=== PATIENT | female | born 2000 | race African-American/Black ===

== ENCOUNTER 2025-02-28 23:37 | Emergency (ER) | payer OTHER ==
[~2025-02-28] VITALS: Ht 170.2 cm; Wt 54.5 kg
[2025-03-01 00:10] VITALS: BP 101/72; PULSE 82; RESP 18; TEMP 97.3; O2SAT 98
[2025-03-01] MEDS: ACETAMINOPHEN 500 MG TABLET PO ONE (02:18)
[2025-03-01] MEDS: IBUPROFEN 400 MG TABLET PO ONE (02:18)
== END 2025-03-01 02:26 | disposition left against medical advice (07) ==
LOC: EMS 03-01 00:03
DX: S83.91XA Sprain of unspecified site of right knee, initial encounter (principal); F17.210 Nicotine dependence, cigarettes, uncomplicated; N91.2 Amenorrhea, unspecified; X58.XXXA Exposure to other specified factors, initial encounter; Y93.89 Activity, other specified; Y92.89 Other specified places as the place of occurrence of the external cause; Y99.8 Other external cause status
CPT/HCPCS: 84703; 99283